=== PATIENT | female | born 1940 | race Caucasian/White ===

== ENCOUNTER → 2019-05-19 | Outpatient (CLI) | payer OTHER ==
[~2019-05-19] MED LIST: FIORICET-COD 31 EACH PO; FLEXERIL PO; HERBAL ENERGY1 EACH PO; HYDROCODON-ACE1 EAC7; IBUPROFEN 200200 M1 PO; MOBIC15 MG PO
== END ==
LOC: RAD 02:27
DX: Z12.31 Encounter for screening mammogram for malignant neoplasm of breast (principal)

== ENCOUNTER → 2019-07-10 | Outpatient (CLI) | payer OTHER | LOC: ULTRA 09:24 | DX: R92.2 Inconclusive mammogram (principal) ==

== ENCOUNTER → 2020-06-10 | Outpatient (CLI) | payer OTHER | LOC: RAD 09:18 | PROVIDERS: ATTEND Internal Medicine | DX: Z12.31 Encounter for screening mammogram for malignant neoplasm of breast (principal) ==

== ENCOUNTER → 2021-06-13 | Outpatient (CLI) | payer OTHER | LOC: BC 10:30 | PROVIDERS: ATTEND Internal Medicine | DX: Z12.31 Encounter for screening mammogram for malignant neoplasm of breast (principal); N64.89 Other specified disorders of breast ==